=== PATIENT | female | born 1985 | race Caucasian/White ===

== ENCOUNTER 2020-04-24 09:21 | Inpatient (IN) ==
[2020-04-24] MEDS ORDERED: CITRIC ACID/SODIUM CITRATE 30 ML UDCUP PO ONE (09:37)
[2020-04-24] MEDS ORDERED: ceFAZolin 2,000 MG in PREMIX 1 EACH IV ONE (09:37)
[2020-04-24] MEDS ORDERED: LACTATED RINGERS 1,000 ML IV SCH ×3 (10:00→14:00)
[2020-04-24 10:14] LABS: Basophils % 0.2 % (0.0-0.8); Eosinophils # 0.1 10*3/uL (0.0-0.87); Eosinophils % 0.4 % (0.00-10.9); Hematocrit 38.7 VOL% (35.7-47.0); Hemoglobin 13.8 GM/DL (12.0-16.0); Immature Granulocytes Absolute 0.14 #; Lymphocytes # 1.9 10*3/uL (1.4-4.0); Lymphocytes % 14.1 % (21.3-54.2); Mean Corpuscular HGB Conc 35.7 GM/DL (32-36); Mean Corpuscular Volume 85.4 FL (87-102); Mean Platelet Volume 12.1 FL (9.6-12.0); Neutrophils % 79.3 % (38.7-73.9); Platelet Count 236 T/CUMM (130-400); Red Blood Count 4.53 MC/CUMM (3.8-5.5); Red Cell Distribution Width 13.9 % (9.3-17.3); White Blood Count 13.7 T/CUMM (4-12)
[2020-04-24 10:28] LABS: Albumin 2.7 G/DL (3.4-5.0); Bilirubin,Total 0.6 MG/DL (0.2-1.0); Osmolality,Calculated 271.8 MOS/KG (273-304); Total Protein 7.1 G/DL (6.4-8.3)
[2020-04-24] MEDS ORDERED: FAMOTIDINE 20 MG/2 ML VIAL IV ONE (10:53)
[2020-04-24] MEDS ORDERED: LACTATED RINGERS 1,000 ML IV ONE ×2 (10:53→13:02)
[2020-04-24] MEDS ORDERED: OXYTOCIN/LR 30 UNIT/1,000 ML BAG IV ONE (11:02)
[2020-04-24] MEDS ORDERED: OXYTOCIN 10 UNIT/ML VIAL IM ONE (11:02)
[2020-04-24] MEDS ORDERED: miSOPROStoL 200 MCG TABLET ONE (12:09)
[2020-04-24] MEDS ORDERED: METHYLERGONOVINE 0.2 MG/1 ML AMP ONE (12:09)
[2020-04-24] MEDS ORDERED: MORPHINE 10 MG/10 ML VIAL ONE (12:29)
[2020-04-24] MEDS ORDERED: BUPIVACAINE SPINAL 0.75% 2 ML AMP SPINAL ONE (12:29)
[2020-04-24] MEDS ORDERED: ePHEDrine 50 MG/ML VIAL ONE (12:53)
[2020-04-24] MEDS ORDERED: ROPIVACAINE 0.5% 30 ML VIAL ONE (13:02)
[2020-04-24] MEDS ORDERED: PHENYLEPHRINE 1 MG/10 ML SYRINGE IV ONE (13:02)
[2020-04-24] MEDS ORDERED: ONDANSETRON 4 MG/2 ML VIAL ONE (13:03)
[2020-04-24] MEDS ORDERED: DEXAMETHASONE 4 MG/1 ML VIAL ONE (13:03)
[2020-04-24 13:37] LABS: Cord Arterial Blood HCO3 16.8 MMOL/L
[2020-04-24 13:38] LABS: Cord Venous Blood PCO2 51.5 MMHG; Cord Venous Blood PO2 29.8 MMHG
[2020-04-24 13:47] LABS: Bilirubin,Urine Negative (Negative); Blood, Urine Negative (Negative); Glucose,Urine (UA) Negative (Negative); Ketones,Urine 20 mg/dL (Negative); Mucus,Urine Occasional /LPF (Occasional); Nitrite,Urine Negative (Negative); Protein,Urine Negative; RBC,Urine 2 /HPF (0-4); Squamous Epithelial Cell,Urine Occasional /HPF (0-10); Urine Appearance CLEAR (Clear); Urine Color Yellow (Yellow); Urine Specific Gravity 1.027 (1.001-1.035); Urine Urobilinogen < 2.0 EU/DL (0.2-1.0); WBC,Urine 1 /HPF (0-6)
[2020-04-24] MEDS ORDERED: ONDANSETRON 4 MG/2 ML VIAL IV PRN (13:57)
[2020-04-24] MEDS ORDERED: MAGNESIUM HYDROXIDE SUSP 30 ML UDCUP PO PRN (13:57)
[2020-04-24] MEDS ORDERED: ACETAMINOPHEN 325 MG TABLET PO PRN (13:57)
[2020-04-24] MEDS ORDERED: OXYTOCIN/LR 20 UNIT/1,000 ML BAG IV ONE (13:57)
[2020-04-24] MEDS ORDERED: RHO(D) IMMUNE GLOBULIN 300 MCG SYRINGE IM ONE (13:57)
[2020-04-24] MEDS ORDERED: KETOROLAC 30 MG/1 ML VIAL IV PRN (17:55)
[2020-04-24] MEDS: ceFAZolin 1,000 MG in SYRINGE 1 EACH IV SCH (20:24)
[2020-04-24 20:35] LABS: Basophils % 0.1 % (0.0-0.8); Hematocrit 35.6 VOL% (35.7-47.0); Hemoglobin 12.4 GM/DL (12.0-16.0); Immature Granulocytes % 0.7 %; Immature Granulocytes Absolute 0.16 #; Lymphocytes # 1.1 10*3/uL (1.4-4.0); Lymphocytes % 4.7 % (21.3-54.2); Mean Corpuscular HGB Conc 34.8 GM/DL (32-36); Mean Corpuscular Volume 86.6 FL (87-102); Mean Platelet Volume 12.3 FL (9.6-12.0); Monocytes % 2.2 % (1.7-12.7); Neutrophils % 92.3 % (38.7-73.9); Platelet Count 213 T/CUMM (130-400); Red Blood Count 4.11 MC/CUMM (3.8-5.5); White Blood Count 22.7 T/CUMM (4-12)
[2020-04-24 20:59] LABS: Band Neutrophils 2 % (0-10); Lymphocytes 3 % (20-55); Segmented Neutrophils 93 % (50-85); Total Cells Counted 100
[2020-04-24 21:00] LABS: Platelet Estimate Normal
[2020-04-25] MEDS: DOCUSATE SODIUM 100 MG CAPSULE PO SCH ×3 (02:14→21:22)
[2020-04-25] MEDS: ceFAZolin 1,000 MG in SYRINGE 1 EACH IV SCH (04:37)
[2020-04-25 06:33] LABS: Basophils # 0.1 10*3/uL (0.0-0.2); Basophils % 0.3 % (0.0-0.8); Eosinophils # 0.1 10*3/uL (0.0-0.87); Eosinophils % 0.4 % (0.00-10.9); Hematocrit 30.8 VOL% (35.7-47.0); Hemoglobin 10.9 GM/DL (12.0-16.0); Immature Granulocytes % 0.8 %; Immature Granulocytes Absolute 0.13 #; Lymphocytes % 12.2 % (21.3-54.2); Mean Corpuscular HGB Conc 35.4 GM/DL (32-36); Mean Corpuscular Volume 86.8 FL (87-102); Mean Platelet Volume 12.3 FL (9.6-12.0); Monocytes % 6.4 % (1.7-12.7); Neutrophils % 79.9 % (38.7-73.9); Platelet Count 198 T/CUMM (130-400); Red Blood Count 3.55 MC/CUMM (3.8-5.5); White Blood Count 16.8 T/CUMM (4-12)
[2020-04-25] MEDS: MULTIVITAMIN (PRENATAL) TABLET PO SCH (09:40)
[2020-04-25] MEDS: METOCLOPRAMIDE 10 MG TABLET PO SCH ×3 (09:40→23:35)
[2020-04-25] MEDS: SIMETHICONE CHEW 80 MG TABLET PO PRN (09:40)
[2020-04-25] MEDS: IBUPROFEN 800 MG TABLET PO PRN ×2 (11:50→21:22)
[2020-04-26] MEDS: IBUPROFEN 800 MG TABLET PO PRN (05:15)
[2020-04-26 07:27] VITALS: BP 120/69
[2020-04-26] MEDS: SIMETHICONE CHEW 80 MG TABLET PO PRN (09:27)
[2020-04-26] MEDS: DOCUSATE SODIUM 100 MG CAPSULE PO SCH (09:27)
[2020-04-26] MEDS: MULTIVITAMIN (PRENATAL) TABLET PO SCH (09:27)
[2020-04-26] MEDS ORDERED: IBUPROFEN 800 MG TABLET PO PRN (10:05)
== END 2020-04-26 13:10 | disposition home or self-care (01) | DRG 788 ==
LOC: N.LDOUT 09:21 → N.LD 09:24 → N.OB 17:32
PROVIDERS: ADMIT Obstetrics & Gynecology; ATTEND Obstetrics & Gynecology
PROC: LDCSECT (ICD-10-PCS; 2020-04-24 12:30)